=== PATIENT | male | born 1995 | race Two or more races ===

== ENCOUNTER 2016-12-25 01:00 | Emergency (ER) | payer SELFPAY ==
[~2016-12-25] VITALS: Ht 188 cm; Wt 99.8 kg
[2016-12-25 02:20] VITALS: BP 180/94
== END 2016-12-25 02:30 ==
LOC: EDBD 01:00 → ER 01:06
DX: F10.120 Alcohol abuse with intoxication, uncomplicated (principal); M54.9 Dorsalgia, unspecified; V48.0XXA Car driver injured in noncollision transport accident in nontraffic accident, initial encounter; Y93.89 Activity, other specified; Y99.8 Other external cause status; Y92.410 Unspecified street and highway as the place of occurrence of the external cause
CPT/HCPCS: 72125